=== PATIENT | male | born 1965 | race Caucasian/White ===

== ENCOUNTER 2021-03-10 15:14 | Emergency (ER) | payer OTHER ==
[2021-03-10] MEDS ORDERED: DECADRON 10MG INJ. IV ONE (15:35)
[2021-03-10] MEDS ORDERED: TYLENOL 325 MG PO STA (15:39)
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
[2021-03-10] MEDS ORDERED: TYLENOL 325 MG ONE (15:46)
[2021-03-10] MEDS ORDERED: DECADRON 10MG INJ. ONE (15:46)
[2021-03-10 15:50] LABS: Absolute Neutrophil Ct (ANC) 7.62 (1.4-6.9); BASOPHIL % 0.3 % (0.0-0.4); Basophil (Absolute #) 0.03 (0-0.4); Eosinophil % 2.4 % (0.00-5.0); Eosinophil (Absolute #) 0.26 (0-0.5); Hematocrit 45.7 % (42-50); Hemoglobin 15.8 gm/dl (12.5-18.0); Lymphocyte (Absolute #) 2.12 (1.0-4.6); Lymphocytes % 19.3 % (24.0-44.0); Mean Cell Volume 88.6 fl (78-100); Mean Corpuscular Hemoglobin 30.6 pg (26-32); Mean Corpuscular Hgb Concent. 34.6 g/dl (32-36); Mean Platelet Volume 10.8 fl (7.5-11.0); Monocyte (Absolute #) 0.96 (0.0-1.3); Monocytes % 8.7 % (0.0-12.0); Neutrophil % 69.3 % (36.0-66.0); Platelet Count 224 K/mm3 (150-450); Red Blood Count 5.16 M/mm3 (4.1-5.6); Red Cell Distribution Width 13.2 % (11.5-14.0)
[2021-03-10 16:09] LABS: ALBUMIN 4.5 g/dL (3.5-5.0); ALKALINE PHOSPHATASE 68 U/L (38-126); ANION GAP 14.4 MEQ/L (5-15); BLOOD UREA NITROGEN 20 mg/dL (9-20); CHLORIDE 105 mmol/L (98-107); Calcium 9.7 mg/dL (8.4-10.2); Carbon Dioxide 24 mmol/L (22-30); Creatinine 1 1.07 mg/dL (0.66-1.25); EST GLOMERULAR FILTRATION RATE > 60.0 ML/MIN; Glucose 106 mg/dL (74-106); MAGNESIUM 1.9 mg/dL (1.6-2.3); NT PRO BNP 110 pg/mL (0-900); Potassium 3.9 mmol/L (3.5-5.1); SGOT/AST 24 U/L (17-59); SGPT/ALT 23 U/L (0-50); SODIUM 139 mmol/L (137-145); Total Protein 7.8 g/dL (6.3-8.2)
[2021-03-10] MEDS ORDERED: Levofloxacin 500 MG Tablet PO ONE (17:44)
[2021-03-10] MEDS ORDERED: Levofloxacin 500 MG Tablet ONE (17:59)
[2021-03-10 19:19] VITALS: BP 161/95; PULSE 85; O2SAT 99
--- NOTE | 2021-03-10 22:34 | XRAY ---
Indication: Fever, chills, short of breath, pain, and headaches. Comparison: November 01, 2020. Portable chest demonstrates new bilateral mid-to lower lung patchy hazy airspace disease and left midlung subsegmental atelectasis/scarring. No large effusion. Heart not enlarged. Bony thorax intact with degenerative changes. Comment: Preliminary interpretation made by [facility]. No critical discrepancy.
== END 2021-03-10 19:19 | disposition home or self-care (01) ==
LOC: ED 15:14
DX: B34.9 Viral infection, unspecified (principal); J18.9 Pneumonia, unspecified organism
CPT/HCPCS: 36000; 36415; 71045; 80053; 83605; 83735; 83880; 84484; 85025; 85379; 87040; 93005; 93041; 96374; 99284; U0003; J1100; A9270-GY